=== PATIENT | female | born 1960 | race Caucasian/White ===

== ENCOUNTER 2017-12-07 09:07 | Inpatient (IN) ==
[2017-12-07] MEDS ORDERED: MethylPREDNISolone Sod Succinate Inj 125 MG/2 ML Vial IV.PUSH ONE (09:15)
[2017-12-07] MEDS ORDERED: Famotidine PF Inj 20 MG/2 ML Vial IV.PUSH ONE (09:24)
[2017-12-07] MEDS ORDERED: Gadobutrol PF 10 MMOL/10 ML Vial (for RAD) IV.SIG ONE (09:33)
--- NOTE | 2017-12-07 09:43 | ED ---
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 Patient apparently received a fairly low dose and shortly thereafter started experiencing redness throughout her body as well as dysarthria and swelling of her lip. Patient denies any shortness of breath at this time. Patient states she feels "terrible". She was given 25 mg of IV Benadryl in MRI. Related Data Home Medications Medication Instructions Recorded Confirmed aspirin 325 mg PO DAILY 11/29/17 11/29/17 chlorthalidone 12.5 mg PO DAILY 11/29/17 11/29/17 metoprolol tartrate 25 mg PO DAILY 11/29/17 11/29/17 venlafaxine 37.5 mg PO DAILY 11/29/17 11/29/17 Allergies Allergy/AdvReac Type Severity Reaction Status Date / Time gadobutrol [From Gadavist] Allergy Severe HIVES, Verified 12/07/17 09:28 TROUBLE BREATHING, FACIAL SWELLING Review of Systems ROS: all other systems reviewed are negative Constitutional Reports system reviewed and no additional complaints, except as docu Eyes Denies eye discharge and Denies itchy eyes ENT Reports lip swelling and Reports tongue swelling Cardiovascular Denies chest pain and Reports dyspnea (Mild ) Respiratory Denies chest congestion and Reports dyspnea (Mild) Gastrointestinal Reports system reviewed and no additional complaints, except as docu Genitourinary Reports system reviewed and no additional complaints, except as docu Musculoskeletal Denies numbness, Reports tingling and Reports other Integumentary/Breasts Denies pruritus and Reports other (Diffuse redness to arms, legs and trunk) Neurologic Denies dizziness, Denies headache(s) and Reports other (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.) [facility] Medical History Medical History CVA (cerebral vascular accident) (Acute) Family History Family History Grandparent Stroke Father Diabetes Mother Migraines High cholesterol Sister Migraines Daughter Migraines Social History Social History Substance History: Unable to Obtain Second Hand Smoke Exposure: No Smoking Status: Unknown if ever smoked How Often Do You Have a Drink Containing Alcohol: Unable to Obtain Hx Recent Travel: No Recent Travel in [facility] within the Last 8 Weeks: No Recent Out of Country Travel within the Last 8 Weeks: No Exam Narrative Exam Narrative: GENERAL: Well-developed well-nourished female in no acute respiratory distress. SKIN: Focused skin assessment warm/dry. Patient has diffuse redness to her upper and lower legs bilaterally. She also has redness to her trunk. There are no blanching lesions appreciated. HEAD: Atraumatic. Normocephalic. EYES: No scleral icterus. No injection or drainage. ENT: No nasal bleeding or discharge. Mucous membranes pink and moist. Upper lip is swollen. Tongue is mildly swollen. No stridor. Airway appears clear. NECK: Trachea midline. Supple. CARDIOVASCULAR: Sinus tachycardia with a rate of 104. No murmur appreciated. RESPIRATORY: No accessory muscle use. Clear to auscultation. Breath sounds equal bilaterally. GASTROINTESTINAL: Abdomen soft, non-tender, nondistended. MUSCULOSKELETAL: No obvious deformities. No clubbing. No cyanosis. No edema. NEUROLOGICAL: Awake and answering questions. Patient does have some slurred speech which was new when the allergic reaction started. Patient has swelling to her upper lip as well as mild swelling to her tongue. Course Initial Documented Vital Signs Temperature 97.4 F L 12/07/17 09:07 Pulse Rate 91 H 12/07/17 09:07 Respiratory Rate 28 H 12/07/17 09:07 Blood Pressure 180/116 H 12/07/17 09:07 Pulse Oximetry 97 12/07/17 09:07 Last Documented Vital Signs Temperature 97.4 F L 12/07/17 09:07 Pulse Rate 79 12/07/17 09:32 Respiratory Rate 18 12/07/17 09:32 Blood Pressure 118/59 L 12/07/17 09:32 Pulse Oximetry 98 12/07/17 09:32 Critical Care Time Critical Care Time: Yes Total Critical Care Time: 45 Attestation: Aggregate critical care time was 45 minutes. Time to perform other separately billable procedures was not included in the critical care time. My time did not include minutes spent treating any other patients simultaneously or on activities that did not directly contribute to the patient's treatment. The services I provided to this patient were to treat and/or prevent clinically significant deterioration that could result in: I provided critical care services requiring my management, as noted below: Chart data review, documentation time, medication orders and management, vital sign assessments/reviewing monitor data, ordering and reviewing lab tests, ordering and interpreting/reviewing x-rays and diagnostic studies, care of the patient and discussion of the patient with the admitting physicians. 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 Patient received 25 mg of Benadryl there. She was given a further 25 mg here as well as 125 mg of Solu-Medrol and 0.3 of IM epinephrine 1-1000. She has been given 20 mg of IV Pepcid. I have sent off basic labs and ordered a chest x-ray. Patient will be admitted to the [facility]. Case was discussed with Dr. Flores who will receive the patient. 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
--- NOTE | 2017-12-07 10:03 | XR ---
EXAM DATE: 12/07/2017 9:49 AM EDT AGE/SEX: 57 years / Female INDICATIONS: Cough. CLINICAL DATA: This is the patient's initial encounter. Patient reports that signs and symptoms have been present for 1 day and indicates a pain score of 0/10. MEDICAL/SURGICAL HISTORY: Carcinoma, breast. Hypertension. Stroke. Mastectomy, bilateral. COMPARISON: No prior exams available for comparison. FINDINGS: A single AP view of the chest demonstrates the lungs to be symmetrically aerated without evidence of mass, infiltrate or effusion. The cardiomediastinal contours are unremarkable. Osseous structures a re intact. There are surgical clips in both axillary regions. CONCLUSION: No acute intrathoracic disease. Electronically signed by: Karl Chaudhary MD 12/07/2017 10:02 AM EDT
[2017-12-07] MEDS ORDERED: Bisacodyl 10 MG Supp RECTAL PRN (10:16)
[2017-12-07 10:21] LABS: Baso # (Auto) 0.1 th/mm3 (0.0-0.2); Baso % (Auto) 0.3 % (0.0-2.0); Eos # (Auto) 0.2 th/mm3 (0.0-0.4); Eos % (Auto) 1.3 % (0.0-4.0); Hematocrit 42.6 % (35.0-46.0); Hemoglobin 14.3 gm/dL (11.6-15.3); Lymph # (Auto) 5.3 th/mm3 (1.0-4.8); Lymph % (Auto) 29.4 % (9.0-44.0); Mean Corpuscular HGB Conc 33.5 % (32.0-36.0); Mean Corpuscular Hemoglobin 30.1 pg (27.0-34.0); Mean Corpuscular Volume 89.9 fL (80.0-100.0); Mean Platelet Volume 8.8 fL (7.0-11.0); Mono # (Auto) 1.6 th/mm3 (0.0-0.9); Mono % (Auto) 8.8 % (0.0-8.0); Neut # (Auto) 10.9 th/mm3 (1.8-7.7); Neut % (Auto) 60.2 % (16.0-70.0); Platelet Count 422 th/mm3 (150-450); Red Blood Count 4.74 mil/mm3 (4.00-5.30); Red Cell Distribution Width 13.9 % (11.6-17.2); White Blood Count 18.1 th/mm3 (4.0-11.0)
[2017-12-07 10:46] LABS: Alanine Aminotransferase 47 U/L (10-53); Albumin 3.6 g/dL (3.4-5.0); Alkaline Phosphatase 68 U/L (45-117); Anion Gap 12 meq/L (5-15); Aspartate Aminotransferase 21 U/L (15-37); Blood Urea Nitrogen 17 mg/dL (7-18); Calcium 8.1 mg/dL (8.5-10.1); Carbon Dioxide 27.4 meq/L (21.0-32.0); Chloride 102 meq/L (98-107); Glomerular Filtration Rate 66 mL/min (>89); Glucose,Random 158 mg/dL (74-106); Sodium 141 meq/L (136-145); Total Protein 7.2 g/dL (6.4-8.2)
--- NOTE | 2017-12-07 10:46 | P.HPCC ---
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 Patient apparently received a fairly low dose and shortly thereafter started experiencing redness throughout her body as well as dysarthria and swelling of her lip. Patient denies any shortness of breath at this time. Patient states she feels "terrible". She was given 25 mg of IV Benadryl in MRI. Subsequently she was taken to the ER vaginally she is received Solu-Medrol IV. Patient was maintaining her blood pressure and O2 sats throughout on room air. She was discharged from [facility] and ED physician felt that patient needed to be admitted to the ICU. I evaluated the patient after she was transferred to the ICU. She appears to have tremors which are chronic. She did have some nausea however denied any chest pain or shortness of breath. She is completely awake and alert at the time of my evaluation. MRI brain done earlier revealed subacute infarct involving the medial right occipital lobe. [facility] Inpatient Certification: I certify that the inpatient services were ordered in accordance with Medicare regulations governing the order. This includes certification that hospital inpatient services are reasonable and necessary and in the case of services not specified as inpatient-only under 42 CFR 419.22(n), that they are appropriately provided as inpatient services in accordance to with the 2-midnight benchmark under 43 CFR 412.3(e) Estimated Total Length of Stay (Days): 2 Plans for Post Hospital Care: Not yet determined Review of Systems Per [facility] - History History Provided By: Patient, Medical Record - Medical History Medical History: Medical History (Last Updated 12/07/17 @ 09:50 by Darline Murray) CVA (cerebral vascular accident) - Family History Family History: Family History (Last Updated 11/29/17 @ 16:43 by Michelle Jacome) Grandparent Stroke Father Diabetes Mother Migraines High cholesterol Sister Migraines Daughter Migraines - Tobacco History Second Hand Smoke Exposure: No Smoking Status: Unknown if ever smoked - Alcohol History How Often Do You Have a Drink Containing Alcohol: Unable to Obtain - Substance Use History Substance History: Unable to Obtain - Travel History History of Recent Travel: No Recent Travel in the [place] Within the Last 8 Weeks: No Recent Travel Out of the Country Within the Last 8 Weeks: No - Immunization History Tetanus Immunization: Unsure Hx Influenza Vaccine This Season: Unable to Assess Medications and Allergies Active Medications: Active Medications Acetaminophen (Tylenol) 650 mg PO Q6H PRN PRN Reason: PAIN 1-10 AND/OR FEVER >101F Al Hydroxide/Mg Hydroxide (Milk Of Magnesia Liq) 30 ml PO Q12H PRN PRN Reason: Mild Constipation Albuterol (Duoneb Neb (Prn)) 1 ampul NEB Q2HR NEB PRN PRN Reason: WHEEZING Bisacodyl (Dulcolax Supp) 10 mg RECTAL DAILY PRN PRN Reason: SEVERE CONSITIPATION Chlorhexidine Gluconate (Chlorhexidine 2% Cloth) 3 pack TOPICAL DAILY@0400 PAULINO Stop: 12/13/17 03:59 Chlorhexidine Gluconate (Chlorhexidine 2% Cloth) 3 pack TOPICAL DAILY@0400 PRN PRN Reason: Extra cloth needed Stop: 12/13/17 03:59 Dexamethasone Sodium Phosphate (Decadron Inj) 4 mg IV.PUSH Q8HR PAULINO Stop: 12/08/17 12:00 Diphenhydramine HCl (Benadryl Inj) 25 mg IV.PUSH Q6H PRN PRN Reason: RASH Enoxaparin Sodium (Lovenox Inj) 40 mg SQ Q24H PAULINO Famotidine (Pepcid Pf Inj) 20 mg IV.PUSH Q12HR PAULINO Sodium Chloride (Ns Inj) 1,000 mls @ 84 mls/hr IV.CONT .[id number] PAULINO Lactulose (Lactulose Liq) 30 ml PO DAILY PRN PRN Reason: SEVERE CONSITIPATION Ondansetron HCl (Zofran Inj) 4 mg IV.PUSH Q6H PRN PRN Reason: NAUSEA OR VOMITING Senna/Docusate Sodium ([place]-Colace) 1 tab PO BID PAUILNO Sennosides (Senokot) 17.2 mg PO Q12H PRN PRN Reason: Moderate Constipation Sodium Chloride (Ns Flush) 2 ml IV.FLUSH BID PAULINO Sodium Chloride (Ns Flush) 2 ml IV.FLUSH PRN PRN PRN Reason: FLUSH AFTER USING IV ACCESS Allergies Allergy/AdvReac Type Severity Reaction Status Date / Time gadobutrol [From Gadavist] Allergy Severe HIVES, Verified 12/07/17 09:28 TROUBLE BREATHING, FACIAL SWELLING Results - Labs CBC & Chem 7: 12/07/17 10:01 12/07/17 10:01 Labs: Short CBC 12/07/17 Range/Units 10:01 WBC 18.1 H (4.0-11.0) th/mm3 Hgb 14.3 (11.6-15.3) gm/dL Hct 42.6 (35.0-46.0) % Plt Count 422 D (150-450) th/mm3 - Imaging Impressions Chest X-Ray 12/07/17 09:27 CONCLUSION: No acute intrathoracic disease. Exam Vital signs: Vital Signs 12/07/17 09:07 12/07/17 09:15 12/07/17 09:32 Temperature 97.4 F L Pulse Rate 91 H 102 H 79 Respiratory Rate 28 H 29 H 18 Blood Pressure 180/116 H 125/58 L 118/59 L Pulse Oximetry 97 98 98 Intake & Output 12/06/17 12/07/17 12/07/17 18:59 06:59 18:59 Weight 68.039 kg Narrative: HEENT/Neuro: No pallor or icterus, tongue moist, JULIO, Awake alert oriented 3 , decreased visual sims however difficult to assess due to nausea currently, moving all 4 extremities with no focal weakness demonstrated. Neck: No JVD Chest/pulmonary: CTA bilaterally Cardiovascular: S1-S2 regular no gallop or murmur GI/abdomen: Soft, nontender, bowel sounds present Extremities: Warm bilaterally, no edema Skin: No rash or lip swelling currently Caprini VTE Risk Assessment Caprini VTE Risk Assessment: No/Low Risk (score <= 1) Caprini Risk Assessment Model: Point Value = 1 Point Value = 2 Point Value = 3 Point Value = 5 Age 41-60 Minor surgery BMI > 25 kg/m2 Swollen legs Varicose veins or History of unexplained or recurrent spontaneous Oral contraceptives or hormone replacement Sepsis (< 1 month) Serious lung disease, including pneumonia (< 1 month) Abnormal pulmonary function Acute myocardial infarction Congestive heart failure (< 1 month) History of inflammatory bowel disease Medical patient at bed rest Age 61-74 Arthroscopic surgery Major open surgery (> 45 min) Laparoscopic surgery (> 45 min) Malignancy Confined to bed (> 72 hours) Immobilizing plaster cast Central venous access Age >= 75 History of VTE Family history of VTE Factor V Leiden Prothrombin [id number] Lupus anticoagulant Anticardiolipin antibodies Elevated serum homocysteine Heparin-induced thrombocytopenia Other congenital or acquired thrombophilia Stroke (< 1 month) Elective arthroplasty Hip, pelvis, or leg fracture Acute spinal cord injury (< 1 month) Prophylaxis Regimen: Total Risk Factor Score Risk Level Prophylaxis Regimen 0-1 Low Early ambulation 2 Moderate Order ONE of the following: *Sequential Compression Device (SCD) *Heparin 5000 units SQ BID 3-4 Higher Order ONE of the following medications: *Heparin 5000 units SQ TID *Enoxaparin/Lovenox 40 mg SQ daily (WT < 150 kg, CrCl > 30 mL/min) *Enoxaparin/Lovenox 30 mg SQ daily (WT < 150 kg, CrCl > 10-29 mL/min) *Enoxaparin/Lovenox 30 mg SQ BID (WT < 150 kg, CrCl > 30 mL/min) AND/OR *Sequential Compression Device (SCD) 5 or more Highest Order ONE of the following medications: *Heparin 5000 units SQ TID (Preferred with Epidurals) *Enoxaparin/Lovenox 40 mg SQ daily (WT < 150 kg, CrCl > 30 mL/min) *Enoxaparin/Lovenox 30 mg SQ daily (WT < 150 kg, CrCl > 10-29 mL/min) *Enoxaparin/Lovenox 30 mg SQ BID (WT < 150 kg, CrCl > 30 mL/min) AND *Sequential Compression Device (SCD) Assessment and Plan - Assessment and Plan Plan: 57-year-old female with: Subacute infarct right medial occipital lobe Visual disturbance Neck pain Allergic reaction to MRI contrast dye Nausea History of migraine Plan: Admitted to ICU Watch for hypotension Rash and lip swelling seem to have resolved while in the ER. Continue Pepcid Bronchodilators as needed Benadryl as needed Received Solu-Medrol in the ER. Will use Decadron 4 mg IV every 6 hourly overnight. Continue aspirin. Consult Dr. Espinoza from neurology was evaluated the patient for subacute infarct and right medial occipital lobe. Visual disturbance possibly related to stroke as well as migraine. Defer to neurology DVT prophylaxis with Lovenox. Patient will be transferred to hospitalist service for further medical management. Critical care will be available as needed.
[2017-12-07 10:56] LABS: Potassium 2.7 meq/L (3.5-5.1)
[2017-12-07] MEDS ORDERED: Enoxaparin Inj 40 MG/0.4 ML Syringe SQ SCH (11:00)
[2017-12-07 11:29] LABS: Lymphocytes 32 % (9-44); Monocytes 12 % (0-8)
[2017-12-07 11:30] LABS: Platelet Estimate Normal (Normal); Platelet Morphology Normal (Normal)
[2017-12-07] MEDS: Sod Chloride 0.9% Inj 1,000 ML IV.CONT SCH ×2 (12:32→23:01)
[2017-12-07] MEDS: Potassium Chlor 10 mEq Premix 10 MEQ/100 ML PIGGYBACK IV.SIG SCH ×4 (12:36→19:48)
--- NOTE | 2017-12-07 13:48 | MR ---
EXAM DATE: 12/07/2017 12:43 PM EDT AGE/SEX: 57 years / Female INDICATIONS: Stroke. Cephalgia. CLINICAL DATA: This is the patient's initial encounter. Patient reports that signs and symptoms have been present for 1 day and indicates a pain score of 6/10. MEDICAL/SURGICAL HISTORY: Carcinoma, breast. Hypertension. Mastectomy, bilateral. COMPARISON: No prior exams available for comparison. TECHNIQUE: 10 ml Gadavist (gadobutrol) contrast infused MRA (cumulative dose for multiple exams) of the extracranial circulation was performed using a neurovascular coil. Postprocessing was performed , including rotating sub-volume maximum intensity projections of each carotid artery, rotating full-v olume maximum intensity projections of both carotid arteries, sagittal and coronal sliding thin-slab reformations of each carotid artery, and left oblique sliding thin-slab reformation through the aorti c arch to include the origin of the arch branch vessels. Patient experienced a contrast media reaction. Reaction consisted of hives Patient was treated with d iphenhydramine (Benadryl) IV This would be considered an anaphylactic reaction to contrast. FINDINGS: Aortic Arch : There is a three-vessel origin of the great vessels from the aorta. No evidence of o stial narrowing. Right Carotid : The common carotid artery is intact. The carotid bulb has a normal configuration wi thout ulceration or narrowing. The internal carotid artery lumen is smooth without stenosis. The ex ternal carotid artery is intact. Left Carotid : The common carotid artery is intact. The carotid bulb has a normal configuration wit hout ulceration or narrowing. The internal carotid artery lumen is smooth without stenosis. The ext ernal carotid artery is intact. Vertebrals : The vertebral arteries have a symmetric diameter. No stenotic lesions are seen. CONCLUSION: 1. Unremarkable MRA of the neck. Percent stenosis is calculated using the diameter of the stenotic region over the diameter of the nor mal distal internal carotid artery Electronically signed by: Karl Chaudhary MD 12/07/2017 1:47 TYRAT
--- NOTE | 2017-12-07 16:21 | ECG ---
Date Performed: 12/07/2017 Time Performed: 09:12:42 PTAGE: 57 years EKG: SINUS TACHYCARDIA INFERIOR MYOCARDIAL INFARCTION ABNORMAL ECG NO PREVIOUS TRACING DOCTOR: Desmond Escobar Interpretating Date/Time 12/07/2017 16:18:59
[2017-12-07] MEDS ORDERED: Potassium Chlor 10 mEq Premix 10 MEQ/100 ML PIGGYBACK IV.SIG ONE (19:30)
[2017-12-07] MEDS: Acetaminophen 325 MG Tablet PO PRN (20:18)
[2017-12-07] MEDS: Famotidine PF Inj 20 MG/2 ML Vial IV.PUSH SCH (20:18)
[2017-12-07] MEDS: Senna/Docusate Sodium 8.6/50 MG Tablet PO SCH (20:19)
[2017-12-08] MEDS ORDERED: Chlorhexidine Gluconate 2% 1 Pack (2 Cloths) TOPICAL PRN (04:00)
[2017-12-08] MEDS ORDERED: Chlorhexidine Gluconate 2% 1 Pack (2 Cloths) TOPICAL SCH (04:00)
[2017-12-08] MEDS: Acetaminophen 325 MG Tablet PO PRN (05:35)
[2017-12-08] MEDS ORDERED: Morphine Sulfate Inj 2 MG/ML Vial ONE (05:39)
[2017-12-08] MEDS ORDERED: Morphine Sulfate Inj 2 MG/ML Vial IV.PUSH ONE (06:00)
[2017-12-08] MEDS: Famotidine PF Inj 20 MG/2 ML Vial IV.PUSH SCH (08:05)
[2017-12-08] MEDS: Senna/Docusate Sodium 8.6/50 MG Tablet PO SCH (08:05)
--- NOTE | 2017-12-08 09:43 | P.PNIM ---
Subjective Interval history: Patient reports she did not sleep well last night due to the noise in the ICU. No further lip swelling or rash. She complains of a headache. Still having visual problems. Can only see colors and shadows which she reports is an improvement since her stroke. Physical Exam Vital signs: Vital Signs 12/07/17 09:32 12/07/17 12:00 12/07/17 14:00 Temperature 98 F Pulse Rate 79 84 76 Respiratory Rate 18 16 18 Blood Pressure 118/59 L 98/57 L 105/60 Pulse Oximetry 98 93 L 96 12/07/17 16:00 12/07/17 17:00 12/07/17 18:00 Temperature 98.6 F 99 F 98.8 F Pulse Rate 80 81 84 Respiratory Rate 16 18 16 Blood Pressure 109/54 L 102/58 L 109/54 L Pulse Oximetry 95 93 L 92 L 12/07/17 19:15 12/07/17 20:00 12/08/17 01:42 Temperature 97.9 F 97.7 F Pulse Rate 82 67 Respiratory Rate 20 20 Blood Pressure 106/59 L 107/56 L Pulse Oximetry 94 L 94 L 92 L 12/08/17 04:00 12/08/17 08:02 Temperature 98.0 F Pulse Rate 68 Respiratory Rate 16 18 Blood Pressure 112/57 L Pulse Oximetry 94 L Intake & Output 12/07/17 12/08/17 12/08/17 18:59 06:59 18:59 Intake Total 840 / 840 1100 / 1100 Output Total 800 / 800 900 / 900 Balance 40 / 40 200 / 200 Weight 68.039 kg 69.5 kg Intake: IV 200 / 200 1100 / 1100 NS Inj 1,000 ML @ 84 mls/hr IV. 1000 / 1000 CONT .[id number] PAULINO Rx#:[id number] KCl 10 mEq Premix Inj 10 meq In 200 / 200 100 / 100 100 ml @ 21.25 mls/hr IV.SIG Q1H PAULINO Rx#:[id number] Oral 640 / 640 Output: Urine 800 / 800 900 / 900 Other: Date of Last Bowel Movement 12/07/17 12/07/17 # Bowel Movements 2 0 Narrative: GENERAL: This is a well-nourished, well-developed patient, in no apparent distress. HEENT: EOM intact. Patient reports she can only see shadows and colors. CARDIOVASCULAR: Regular rate and rhythm without murmurs, gallops, or rubs. RESPIRATORY: Clear to auscultation. Breath sounds equal bilaterally. No wheezes , rales, or rhonchi. GASTROINTESTINAL: Abdomen soft, non-tender, nondistended. Normal active bowel sounds MUSCULOSKELETAL: Extremities without clubbing, cyanosis, or edema. NEURO: Alert & Oriented x4 to person, place, time, situation. Moves all ext x4. Left sided is 4+/5 compared to 5/5 on the right. Results - Labs CBC & Chem 7: 12/07/17 10:01 12/07/17 10:01 Laboratory Results - last 24 hr 12/07/17 12/07/17 10:01 10:01 WBC 18.1 H RBC 4.74 Hgb 14.3 Hct 42.6 MCV 89.9 MCH 30.1 MCHC 33.5 RDW 13.9 Plt Count 422 D MPV 8.8 Prelim Diff (Auto) Slide review pending Neut % (Auto) 60.2 Lymph % (Auto) 29.4 [place] % (Auto) 8.8 H Eos % (Auto) 1.3 Baso % (Auto) 0.3 Neut # (Auto) 10.9 H Lymph # (Auto) 5.3 H [place] # (Auto) 1.6 H Eos # (Auto) 0.2 Baso # (Auto) 0.1 WBC Differential Manual diff final Seg Neuts % (Manual) 56 Lymphocytes % (Manual) 32 Monocytes % (Manual) 12 H Abs Neuts (Manual) 10.1 H Differential Comment . Platelet Estimate Normal Platelet Morphology Normal Sodium 141 Potassium 2.7 L* Chloride 102 Carbon Dioxide 27.4 Anion Gap 12 BUN 17 Creatinine 0.89 Estimated GFR 66 L Random Glucose 158 H Calcium 8.1 L Total Bilirubin 0.6 AST 21 ALT 47 Alkaline Phosphatase 68 Total Protein 7.2 Albumin 3.6 - Imaging Impressions Neck MRA 12/07/17 00:00 CONCLUSION: 1. Unremarkable MRA of the neck. Percent stenosis is calculated using the diameter of the stenotic region over the diameter of the normal distal internal carotid artery Chest X-Ray 12/07/17 09:27 CONCLUSION: No acute intrathoracic disease. Assessment and Plan - Assessment (1) Contrast media adverse reaction Code(s): T50.8X5A - Adverse effect of diagnostic agents, initial encounter Status: Acute (2) Headache Code(s): R51 - Headache Status: Acute (3) History of CVA (cerebrovascular accident) Code(s): Z86.73 - Personal history of transient ischemic attack (TIA), and cerebral infarction without residual deficits Status: Acute - Plan 57-year-old female with: Recent Subacute infarct right medial occipital lobe: - Patient admitted to [facility] for rehabilitation and had complaints of neck pain and persistent visual disturbances. An MRI was obtained however she had a reaction to the contrast dye. Patient seen in the ED and given Solumedrol. She was admitted to the ICU for close monitoring. - Continue Aspirin Allergic reaction to contrast dye: - Patient given Solumedrol and received Decadron overnight. Her symptoms quickly resolved. - Can use Benadryl PRN Visual disturbance/headache and neck pain: - Evaluated by Neurology at [facility]. Per , visual symptoms improving since the stroke. - MRA and MRA with no new findings. - Per previous Neuro recs. Fioricet as needed for headache. Hypokalemia: - Replaced overnight. Repeat BMP this morning pending. Patient quickly recovered from the allergic reaction. I discussed the case with Dr. Zapata. The patient can return to [facility] to continue rehabilitation. Discharge Planning: Discharge patient back to [facility]. Condition on discharge: Improved Hear healthy Diet as tolerated Ad Lilibeth activity Rx written:Per med rec
[2017-12-08] MEDS ORDERED: Aspirin 325 MG Tablet PO SCH (09:45)
== END 2017-12-08 10:30 ==
LOC: NEPC 09:07 → NEDA 09:30 → HIMC 10:10
PROVIDERS: ADMIT Family Medicine; ATTEND Family Medicine